=== PATIENT | male | born 1975 | race Caucasian/White ===

== ENCOUNTER 2022-12-22 21:21 | Emergency (ER) | payer MEDICAID ==
[~2022-12-22] VITALS: Ht 188 cm; Wt 127.0 kg
[2022-12-22 21:28] VITALS: BP 136/86
--- NOTE | 2022-12-22 21:40 | NUR ---
ILIANA LEVIN examining patient.
--- NOTE | 2022-12-22 21:47 | NUR ---
Dr. Burroughs examining patient.
[2022-12-22] MEDS ORDERED: IBUPROFEN 600 MG TAB PO ONE (21:55)
[2022-12-22] MEDS ORDERED: IBUP-2213 PO (22:06)
[2022-12-22] MEDS ORDERED: CLIN300C2 PO (22:06)
[2022-12-22 22:18] VITALS: BP 136/86
--- NOTE | 2022-12-22 22:18 | NUR ---
Patient discharged with v/s stable. Written and verbal after care instructions given and explained. Patient alert, oriented and verbalized understanding of instructions. Ambulatory with steady gait. All questions addressed prior to discharge. ID band removed. Patient advised to follow up with PMD. Rx of CLEOCIN AND IBUPROFEN given. Patient educated on indication of medication including possible reaction and side effects. Opportunity to ask questions provided and answered.
== END 2022-12-22 22:18 | disposition home or self-care (01) ==
LOC: MED 21:21
DX: K04.7 Periapical abscess without sinus (principal); R22.0 Localized swelling, mass and lump, head; E11.9 Type 2 diabetes mellitus without complications; Z79.4 Long term (current) use of insulin; Z79.899 Other long term (current) drug therapy
CPT/HCPCS: 99283

== ENCOUNTER 2023-07-01 16:22 | Emergency (ER) | payer MEDICAID, OTHER ==
[~2023-07-01] VITALS: Ht 188 cm; Wt 129.3 kg
[~2023-07-01 16:22] MED LIST: CLIN300C2 PO; IBUP-2213 PO
[2023-07-01 17:00] VITALS: BP 146/84; PULSE 89; RESP 14; TEMP 98.3; O2SAT 97
[2023-07-01] MEDS ORDERED: CEPH-588 PO (17:17)
[2023-07-01] MEDS ORDERED: SULF-59 PO (17:17)
[2023-07-01] MEDS ORDERED: IBUP-2213 PO (17:17)
[2023-07-01 17:23] VITALS: BP 135/77; PULSE 89; RESP 14; TEMP 98.3; O2SAT 97
== END 2023-07-01 17:23 | disposition home or self-care (01) ==
LOC: MED 16:22
DX: L03.114 Cellulitis of left upper limb (principal); E11.9 Type 2 diabetes mellitus without complications; Z72.89 Other problems related to lifestyle; Z79.4 Long term (current) use of insulin; Z79.899 Other long term (current) drug therapy
CPT/HCPCS: 99283